=== PATIENT | female | born 1995 | race Caucasian/White ===

== ENCOUNTER 2018-12-29 18:11 | Emergency (ER) | payer BC, OTHER ==
--- NOTE | 2018-12-29 19:33 | ER Document Report ---
ED Medical Screen (RME) - General Chief Complaint: Vaginal Bleeding Stated Complaint: VAGINAL BLEEDING Time Seen by Provider: 12/29/18 19:26 Mode of Arrival: Ambulatory Information source: Patient Notes: This 23-year-old female presents emergency department reports she is G1, P0. She reports abdominal cramping since she found out she was in November. She reports she was experiencing cramping every couple days today cramping is been consistently coming and going. She also reports noted vaginal bleeding when she wiped. She has been seen by [facility] and has been confirmed no ultrasound. Denies other symptoms such as fever vomiting denies trauma. Denies pain with void. She declined Tylenol for pain. I have greeted and performed a rapid initial assessment of this patient. A comprehensive ED assessment and evaluation of the patient, analysis of test results and completion of the medical decision making process will be conducted by additional ED providers. Dictation of this chart was performed using voice recognition software; therefore, there may be some unintended grammatical errors. TRAVEL OUTSIDE OF THE [place] IN LAST 30 DAYS: No - Related Data Allergies/Adverse Reactions: No Known Allergies Allergy (Unverified 12/29/18 18:13) Physical Exam - Vital signs Vitals: Temp Pulse Resp BP Pulse Ox 98.8 F 83 16 135/68 H 98 12/29/18 18:16 12/29/18 18:16 12/29/18 18:16 12/29/18 18:16 12/29/18 18:16 Course - Vital Signs Vital signs: Temp Pulse Resp BP Pulse Ox 98.8 F 83 16 135/68 H 98 12/29/18 18:16 12/29/18 18:16 12/29/18 18:16 12/29/18 18:16 12/29/18 18:16
[2018-12-29 20:09] LABS: APPEARANCE,URINE CLEAR; BILIRUBIN,URINE NEGATIVE (NEGATIVE); COLOR,URINE YELLOW; GLUCOSE, URINE NEGATIVE (NEGATIVE); KETONES,URINE NEGATIVE (NEGATIVE); LEUKOCYTE ESTERASE,URINE NEGATIVE (NEGATIVE); NITRITE,URINE NEGATIVE (NEGATIVE); PROTEIN,URINE NEGATIVE (NEGATIVE); URINE SPECIFIC GRAVITY 1.011; UROBILINOGEN,URINE NEGATIVE mg/dL (<2.0)
--- NOTE | 2018-12-29 20:26 | ER Document Report ---
ED GI/ - General Chief Complaint: Vaginal Bleeding Stated Complaint: VAGINAL BLEEDING Time Seen by Provider: 12/29/18 19:26 [facility] - Follow up as needed Mode of Arrival: Ambulatory Notes: Patient is a G1, P0 who presents to the emergency department with a chief complaint of vaginal bleeding. Patient reports she is an estimated 6 weeks and 3 days with a last menstrual cycle of November 14. Patient states she has been seen at [facility] and and had a positive urine test. Patient states she has not had a confirmed ultrasound or blood work. Patient states that throughout the 6-week she has had pelvic cramping. Patient states around 17:45 this afternoon she developed some vaginal bleeding with stringy light clots. Patient reports the bleeding was originally bright red in color and is now was brown. Patient states this is not as heavy as her usual menstrual cycle. Patient denies nausea, vomiting or diarrhea. Patient denies fever. Patient denies urinary symptoms. Patient denies vaginal discharge prior to the bleeding. Patient does report a history of genital herpes with her last outbreak being in 2014, states she is not currently having any symptoms. TRAVEL OUTSIDE OF THE [place] IN LAST 30 DAYS: No - Related Data Allergies/Adverse Reactions: No Known Allergies Allergy (Unverified 12/29/18 18:13) Past Medical History - General Information source: Patient - Social History Smoking Status: Never Smoker Frequency of alcohol use: None Drug Abuse: None Lives with: Spouse/Significant other Family History: None - Past Medical History Cardiac Medical History: Reports: None Pulmonary Medical History: Reports: None EENT Medical History: Reports: None Neurological Medical History: Reports: None Endocrine Medical History: Reports: None Renal/ Medical History: Reports: None Malignancy Medical History: Reports: None GI Medical History: Reports: None Musculoskeletal Medical History: Reports None Skin Medical History: Reports None Psychiatric Medical History: Reports: None Traumatic Medical History: Reports: None Infectious Medical History: Reports: None Surgical Hx: Negative Review of Systems - Review of Systems Constitutional: No symptoms reported EENT: No symptoms reported Cardiovascular: No symptoms reported Respiratory: No symptoms reported Gastrointestinal: See HPI Genitourinary: No symptoms reported Female Genitourinary: See HPI Musculoskeletal: No symptoms reported Skin: No symptoms reported Hematologic/Lymphatic: No symptoms reported Neurological/Psychological: No symptoms reported Physical Exam - Vital signs Vitals: Temp Pulse Resp BP Pulse Ox 98.8 F 83 16 135/68 H 98 12/29/18 18:16 12/29/18 18:16 12/29/18 18:16 12/29/18 18:16 12/29/18 18:16 Interpretation: Normal - Notes Notes: GENERAL: Well-appearing, well-nourished and in no acute distress. HEAD: Atraumatic, normocephalic. EYES: Pupils equal round and reactive to light, extraocular movements intact, sclera anicteric, conjunctiva are normal. ENT: Nares patent, oropharynx clear without exudates. Moist mucous membranes. NECK: Normal range of motion, supple without lymphadenopathy or JVD. LUNGS: Breath sounds clear to auscultation bilaterally and equal. No wheezes rales or rhonchi. HEART: Regular rate and rhythm without murmurs, rubs or gallops. ABDOMEN: Soft, nontender, normoactive bowel sounds. No guarding, no rebound. No masses appreciated. BACK: No cervical, thoracic, lumbar midline tenderness. No saddle anesthesia, normal distal neurovascular exam. GENITOURINARY: Deferred. EXTREMITIES: Normal range of motion, no pitting or edema. No clubbing or cyanosis. NEUROLOGICAL: Cranial nerves II through XII grossly intact. Normal speech, normal gait. PSYCH: Normal mood, normal affect. SKIN: Warm, Dry, normal turgor, no rashes or lesions noted. Course - Re-evaluation Re-evalutation: 12/29/18 22:39 I did give the patient the results of the blood work and ultrasound. I did inform the patient that anytime you have bleeding with this caused a threatened miscarriage. I did refer the [facility]. Patient states she will call them tomorrow. Patient is a positive and does not require RhoGam at this time. - Vital Signs Vital signs: Temp Pulse Resp BP Pulse Ox 98.2 F 85 18 141/79 H 98 12/29/18 21:46 12/29/18 21:46 12/29/18 21:46 12/29/18 21:46 12/29/18 21:46 - Laboratory Result Diagrams: 12/29/18 21:00 12/29/18 21:00 Laboratory results interpreted by me: 12/29/18 12/29/1819 19:40 21:00 21:00 WBC 12.1 H Total Bilirubin 0.1 L Beta HCG, Quant 3192.60 H Urine Blood LARGE H - Diagnostic Test Radiology reviewed: Reports reviewed Radiology results interpreted by me: 12/29/18 21:30 Obstetrics Ultrasound 12/29/18 19:31 IMPRESSION: Single viable intrauterine , as above. However, cardiac motion was difficult to visualize on M-mode ultrasound. heart rate was approximately 113 bpm. copyright 2010 [employer]- All Rights Reserved Discharge - Discharge Clinical Impression: Threatened miscarriage Qualifiers: Weeks of gestation: less than 8 weeks Qualified Code(s): Z3A.01 - Less than 8 weeks gestation of Condition: Stable Disposition: HOME, SELF-CARE Additional Instructions: Today you are seen in the emergency department for vaginal bleeding. Your ultrasound did show a live intrauterine measuring 6 weeks and 2 days. Anytime you have a bleeding with this is called a threatened miscarriage. At this time your blood work is stable with no abnormalities. You do not have a urinary tract infection. Please follow-up with your LEGAL BILLING SPECIALIST. If you do not have an LEGAL BILLING SPECIALIST I will refer you to [facility] here in [place]. Please call them to make a follow-up appointment and to establish care. Please monitor for worsening vaginal bleeding that is worse than a period, severe pain, fever, passing of large clots, dizziness or any other concerning signs or symptoms -if you do start to have the symptoms he will need to come to the emergency department. Your blood type is A positive. Threatened Miscarriage You have been evaluated for a possible miscarriage. At this time, there is no indication that a miscarriage will occur. Most women with your symptoms will go on to have a perfectly normal baby. However, careful observation will be necessary. A miscarriage occurs when the fetus is abnormal. There is no medicine or treatment for it. You should rest in bed until the symptoms have resolved. Do not douche or have sex for at least a week, or until OK'd by the doctor. Call the doctor or return for re-examination if there is an increase in bleeding or cramping, or passage of tissue. Referrals: [id number] [Provider Group] - Follow up as needed
[2018-12-29 21:11] LABS: ABSOLUTE BASOPHILS # (AUTO) 0.1 10^3/uL (0.0-0.2); ABSOLUTE EOSINOPHILS # (AUTO) 0.1 10^3/uL (0.0-0.6); ABSOLUTE LYMPHOCYTES (AUTO) 3.3 10^3/uL (0.5-4.7); ABSOLUTE MONOCYTES (AUTO) 0.9 10^3/uL (0.1-1.4); ABSOLUTE NEUT (AUTO) 7.7 10^3/uL (1.7-8.2); BASOPHILS % (AUTO) 0.6 % (0-2); EOSINOPHILS % (AUTO) 1.1 % (0-6); HEMATOCRIT 38.9 % (36.0-47.0); LYMPHOCYTES % (AUTO) 27.2 % (13-45); MEAN CORPUSCULAR HEMOGLOBIN 28.7 pg (27.0-33.4); MEAN CORPUSCULAR HGB CONC 33.6 g/dL (32.0-36.0); MEAN CORPUSCULAR VOLUME 86 fl (80-97); MONOCYTES % (AUTO) 7.4 % (3-13); PLATELET COUNT 310 10^3/uL (150-450); RED BLOOD COUNT 4.54 10^6/uL (3.72-5.28); RED CELL DISTRIBUTION WIDTH 13.7 % (11.5-14.0); SEGMENTED NEUTROPHILS % (AUTO) 63.7 % (42-78); TOTAL CELLS COUNTED % (AUTO) 100 %; WHITE BLOOD COUNT 12.1 10^3/uL (4.0-10.5)
--- NOTE | 2018-12-29 21:25 | RADIOLOGY REPORT (SQ) ---
EXAM DESCRIPTION: US TRANSVAGINAL COMPLETED DATE/TME: 12/29/2018 19:31 CLINICAL HISTORY: 23 years, Female, preg vag bleed COMPARISON: None. TECHNIQUE: Axial 2-D grayscale images of the pelvis were acquired. Doppler was utilized. LIMITATIONS: None. FINDINGS: Uterus measures 8.4 x 4.5 x 3.9 cm in size. Cervix is closed, measuring 2 cm in length. A single intrauterine is identified with measurements as follows: sac diameter is 0.28 cm [place]-rump length is 0.49 cm Estimated gestational age is 6 weeks and 2 days for an estimated date of delivery of 08/22/2019. heart rate is 113 bpm Right ovary measures 1.9 x 2.4 x 1.8 cm in size. It demonstrates elements of Doppler flow. Left ovary measures 2.0 x 2.1 x 1.9 cm in size, also demonstrating elements of Doppler flow. IMPRESSION: Single viable intrauterine , as above. However, cardiac motion was difficult to visualize on M-mode ultrasound. heart rate was approximately 113 bpm. copyright 2010 [employer]- All Rights Reserved
[2018-12-29 21:29] LABS: ALBUMIN 4.3 g/dL (3.5-5.0); ALKALINE PHOSPHATASE 58 U/L (38-126); ANION GAP 10 (5-19); ASPARTATE AMINO TRANSFERASE 20 U/L (14-36); BILIRUBIN,DIRECT 0.1 mg/dL (0.0-0.4); BILIRUBIN,TOTAL 0.1 mg/dL (0.2-1.3); BLOOD UREA NITROGEN 10 mg/dL (7-20); CALCIUM 9.6 mg/dL (8.4-10.2); CARBON DIOXIDE 24 mmol/L (22-30); CHLORIDE 106 mmol/L (98-107); GLUCOSE 97 mg/dL (75-110); POTASSIUM 3.7 mmol/L (3.6-5.0); TOTAL PROTEIN 7.4 g/dL (6.3-8.2)
[2018-12-29 21:50] VITALS: BP 141/79
== END 2018-12-29 22:00 | disposition home or self-care (01) ==
LOC: ER 18:11
DX: O20.0 Threatened abortion (principal); Z3A.01 Less than 8 weeks gestation of pregnancy
CPT/HCPCS: 36415; 76817; 80053; 81001; 84702; 85025; 86900; 86901; 99284

== ENCOUNTER 2018-12-30 15:28 | Emergency (ER) | payer BC, OTHER ==
--- NOTE | 2018-12-30 15:50 | ER Document Report ---
ED Medical Screen (RME) - General Chief Complaint: Vaginal Bleeding Stated Complaint: VAGINAL BLEEDING Time Seen by Provider: 12/30/18 15:46 [facility] - Follow up in 3-5 days BARRERA EUCEDA MD [Primary Care Provider] - Follow up as needed Mode of Arrival: Ambulatory Information source: Patient Notes: 23-year-old female returns today with reports that she is having clots when she wipes herself. Reports abdominal cramps that come and go. Patient was evaluated yesterday for the same symptoms. She noticed the clot today became very worried. Also reports when she was sitting on the toilet she became lightheaded. Reports multiple episodes of diarrhea. I have greeted and performed a rapid initial assessment of this patient. A comprehensive ED assessment and evaluation of the patient, analysis of test results and completion of the medical decision making process will be conducted by additional ED providers. Dictation of this chart was performed using voice recognition software; therefore, there may be some unintended grammatical errors. TRAVEL OUTSIDE OF THE [place] IN LAST 30 DAYS: No - Related Data Allergies/Adverse Reactions: No Known Allergies Allergy (Verified 12/30/18 15:37) Past Medical History Past Surgical History: Reports: Hx Oral Surgery Physical Exam - Vital signs Vitals: Temp Pulse Resp BP Pulse Ox 98.7 F 95 18 131/72 H 97 12/30/18 15:39 12/30/18 15:39 12/30/18 15:39 12/30/18 15:39 12/30/18 15:39 Course - Vital Signs Vital signs: Temp Pulse Resp BP Pulse Ox 98.1 F 79 16 123/64 100 12/30/18 19:50 12/30/18 19:50 12/30/18 19:50 12/30/18 19:50 12/30/18 19:50 - Laboratory Result Diagrams: 12/30/18 16:19 12/30/18 16:19 Laboratory results interpreted by me: 12/30/18 12/30/18 16:19 16:19 WBC 11.3 H Absolute Neuts (auto) 8.5 H Beta HCG, Quant 3485.00 H Doctor's Discharge - Discharge Clinical Impression: Bleeding in early , bradycardia Condition: Stable Disposition: HOME, SELF-CARE Additional Instructions: Maintain fluid intake Proper hygienic technique Keep the skin clean Tylenol/ibuprofen as needed F/u with your PCM/OBGYN in 3-5 days for a recheck--Call OBGYN tomorrow to schedule an appointment Return to the ED with any development of ESCAMILLA/fever, trouble with vision, eye redness, worsening pain, urethral discharge, urinary retention, blood in the urine, flank pain, abdominal pain, n/v, Chest Pain, shortness of breath, joint pains, trouble breathing, or any other worsening/concerning symptoms as needed otherwise. Forms: Elevated Blood Pressure Referrals: [facility] [Provider Group] - Follow up in 3-5 days BARRERA EUCEDA MD [Primary Care Provider] - Follow up as needed
[2018-12-30 16:47] LABS: ABSOLUTE EOSINOPHILS # (AUTO) 0.1 10^3/uL (0.0-0.6); ABSOLUTE LYMPHOCYTES (AUTO) 1.9 10^3/uL (0.5-4.7); ABSOLUTE MONOCYTES (AUTO) 0.7 10^3/uL (0.1-1.4); ABSOLUTE NEUT (AUTO) 8.5 10^3/uL (1.7-8.2); BASOPHILS % (AUTO) 0.4 % (0-2); EOSINOPHILS % (AUTO) 0.9 % (0-6); HEMOGLOBIN 13.5 g/dL (12.0-15.5); LYMPHOCYTES % (AUTO) 16.5 % (13-45); MEAN CORPUSCULAR HEMOGLOBIN 28.2 pg (27.0-33.4); MEAN CORPUSCULAR VOLUME 86 fl (80-97); MONOCYTES % (AUTO) 6.4 % (3-13); PLATELET COUNT 310 10^3/uL (150-450); RED BLOOD COUNT 4.79 10^6/uL (3.72-5.28); RED CELL DISTRIBUTION WIDTH 13.7 % (11.5-14.0); SEGMENTED NEUTROPHILS % (AUTO) 75.8 % (42-78); TOTAL CELLS COUNTED % (AUTO) 100 %; WHITE BLOOD COUNT 11.3 10^3/uL (4.0-10.5)
[2018-12-30 17:10] LABS: ALBUMIN 4.3 g/dL (3.5-5.0); ALKALINE PHOSPHATASE 62 U/L (38-126); ANION GAP 11 (5-19); ASPARTATE AMINO TRANSFERASE 23 U/L (14-36); BILIRUBIN,DIRECT 0.1 mg/dL (0.0-0.4); BILIRUBIN,TOTAL 0.3 mg/dL (0.2-1.3); BLOOD UREA NITROGEN 11 mg/dL (7-20); CALCIUM 9.4 mg/dL (8.4-10.2); CARBON DIOXIDE 24 mmol/L (22-30); CHLORIDE 105 mmol/L (98-107); GLUCOSE 91 mg/dL (75-110); POTASSIUM 4.3 mmol/L (3.6-5.0); TOTAL PROTEIN 7.4 g/dL (6.3-8.2)
--- NOTE | 2018-12-30 17:27 | ER Document Report ---
ED General - General Chief Complaint: Vaginal Bleeding Stated Complaint: VAGINAL BLEEDING Time Seen by Provider: 12/30/18 15:46 Primary Care Provider: BARRERA EUCEDA MD [Primary Care Provider] - Follow up as needed Mode of Arrival: Ambulatory TRAVEL OUTSIDE OF THE [place] IN LAST 30 DAYS: No - HPI Notes: Patient is a 23-year-old female approximately 6 weeks 3 days who presents complaining of noticing a quarter size clot being passed at 2 PM today. Patient states that she was bleeding yesterday, but that has since stopped until she noticed a clot today. Patient was told to come here for evaluation. She has had some continued cramping. She is otherwise eating and drinking without difficulty. She is urinating normally and states that she is having a mixture of normal bowel and loose bowel. Denies drug allergies. No other vaginal odor or discharge. Denies any headache, fever, URI, sore throat, chest pain, palpitations, syncope, cough, shortness of breath, wheeze, dyspnea, nausea/vomiting/diarrhea, urinary retention, dysuria, hematuria, back pain, or rash. - Related Data Allergies/Adverse Reactions: No Known Allergies Allergy (Verified 12/30/18 15:37) Past Medical History - General Information source: Patient - Social History Smoking Status: Never Smoker Frequency of alcohol use: None Drug Abuse: None Family History: None Patient has suicidal ideation: No Patient has homicidal ideation: No Past Surgical History: Reports: Hx Oral Surgery Review of Systems - Review of Systems -: Yes All other systems reviewed and negative Physical Exam - Vital signs Vitals: Temp Pulse Resp BP Pulse Ox 98.7 F 95 18 131/72 H 97 12/30/18 15:39 12/30/18 15:39 12/30/18 15:39 12/30/18 15:39 12/30/18 15:39 - Notes Notes: PHYSICAL EXAMINATION: GENERAL: Well-appearing, well-nourished and in no acute distress. LUNGS: Breath sounds clear to auscultation bilaterally and equal. No wheezes rales or rhonchi. HEART: Regular rate and rhythm without murmurs, rubs, gallops. ABDOMEN: Soft, nontender, nondistended abdomen. No guarding, no rebound. Normal bowel sounds present. No CVA tenderness bilaterally. Musculoskeletal: FROM to passive/active. Strength 5+/5. Extremities: No cyanosis, clubbing, or edema b/l. Peripheral pulses 2+. Capillary refill less than 3 seconds. NEUROLOGICAL: Normal speech, normal gait. PSYCH: Normal mood, normal affect. SKIN: Warm, Dry, normal turgor, no rashes or lesions noted. Course - Re-evaluation Re-evalutation: 12/30/18 19:30 Reviewed with OBGYN, Dr. Main, call their office tomorrow to schedule f/u. Patient is an afebrile, well-hydrated, 23-year-old female who presents to the ED with bleeding in early and intrauterine with bradycardia. Vitals are acceptable without any significant tachycardia, tachypnea, or hypoxia. PE is otherwise unremarkable. CBC, CMP unremarkable for acute pathology. HCG at 3400+ (300 increase from yesterday). See TVUS. Patient is nontoxic-appearing is tolerating p.o. without any difficulties. No other labs or imaging warranted at this time based on H&P. Low suspicion/risk for acute appendicitis, bowel obstruction, acute cholecystitis, acute cholangitis, perforated diverticulitis, incarcerated hernia, pancreatitis, perforated ulcer, peritonitis, sepsis, pelvic inflammatory disease, ectopic , tubo- ovarian abscess, ovarian torsion, or other systemic emergent condition at this time. Patient is aware that her condition can change from initial presentation and she needs to monitor symptoms closely and seek medical attention if any acute changes. Conservative measures otherwise for symptoms. Recheck with your PCM/OBGYN in 3-5 days. Return to the ED with any worsening/concerning symptoms otherwise as reviewed in discharge. Patient is in agreement. - Vital Signs Vital signs: Temp Pulse Resp BP Pulse Ox 98.7 F 95 18 131/72 H 97 12/30/18 15:39 12/30/18 15:39 12/30/18 15:39 12/30/18 15:39 12/30/18 15:39 - Laboratory Result Diagrams: 12/30/18 16:19 12/30/18 16:19 Laboratory results interpreted by me: 12/30/18 12/30/18 16:19 16:19 WBC 11.3 H Absolute Neuts (auto) 8.5 H Beta HCG, Quant 3485.00 H Discharge - Discharge Clinical Impression: Bleeding in early , bradycardia Condition: Stable Disposition: HOME, SELF-CARE Additional Instructions: Maintain fluid intake Proper hygienic technique Keep the skin clean Tylenol/ibuprofen as needed F/u with your PCM/OBGYN in 3-5 days for a recheck--Call OBGYN tomorrow to schedule an appointment Return to the ED with any development of ESCAMILLA/fever, trouble with vision, eye redness, worsening pain, urethral discharge, urinary retention, blood in the urine, flank pain, abdominal pain, n/v, Chest Pain, shortness of breath, joint pains, trouble breathing, or any other worsening/concerning symptoms as needed otherwise. Forms: Elevated Blood Pressure Referrals: BARRERA EUCEDA MD [Primary Care Provider] - Follow up as needed [facility] [Provider Group] - Follow up in 3-5 days
[2018-12-30] MEDS ORDERED: ACETAMINOPHEN 325 MG TABLET PO ONE (18:43)
--- NOTE | 2018-12-30 19:15 | RADIOLOGY REPORT (SQ) ---
EXAM DESCRIPTION: U/S OB TRANSVAGINAL W/O DOP COMPLETED DATE/TIME: 12/30/2018 7:00 pm REASON FOR STUDY: preg vag bleeding with clots COMPARISON: 12/29/2018 TECHNIQUE: Transvaginal static and realtime grayscale images acquired of the pelvis. Additional temi cted spectral and color Doppler images recorded. All images stored on PACs. bHC,485, increased from 3,192 on 12/29/2018. CLINICAL DATES: LMP 11/14/2018. 6 weeks 4 days. LIMITATIONS: None. FINDINGS: FETUS: Single Living intrauterine . ULTRASOUND EGA: 6 weeks 0 days ULTRASOUND ISIS: 08/25/2019 EFW: Not applicable less than 20 weeks. CRL: 3.6 mm. FHR: 77 beats per minute. SURVEY: Too early to assess. AMNIOTIC FLUID: Adequate amount. PLACENTA: Not yet developed due to early gestation. SUBCHORIONIC BLEED: No SIZE OF BLEED: Not applicable. UTERUS: No masses. No anomalies. CERVICAL LENGTH: 1.5 cm. Closed. RIGHT ADNEXA: Ovary not seen. No adnexal free fluid. No adnexal masses. LEFT ADNEXA: Ovary not seen. No adnexal free fluid. No adnexal masses. FREE FLUID: None. OTHER: No other significant finding. IMPRESSION: Live intrauterine gestation of 6 weeks 0 days. bradycardia. Follow-up as clinica lly indicated. Trimester of : First trimester - 0 to 13 weeks. TECHNICAL DOCUMENTATION: JOB ID: [id number] [employer]- All Rights Reserved rev-09/05 Reading location - IP/workstation name: [email or web address]
[2018-12-30 19:53] VITALS: BP 123/64
== END 2018-12-30 19:53 | disposition home or self-care (01) ==
LOC: ER 15:28
DX: O46.91 Antepartum hemorrhage, unspecified, first trimester (principal); O76 Abnormality in fetal heart rate and rhythm complicating labor and delivery; O26.891 Other specified pregnancy related conditions, first trimester; R10.2 Pelvic and perineal pain; Z3A.01 Less than 8 weeks gestation of pregnancy
CPT/HCPCS: 36415; 76817; 80053; 84702; 85025; 99284